=== PATIENT | male | born 1980 | race Asian ===

== ENCOUNTER 2020-09-29 23:13 | Emergency (ER) | payer BC, SELFPAY ==
[~2020-09-29] VITALS: Ht 170.2 cm; Wt 83.9 kg
[2020-09-29 23:16] VITALS: Ht 170.2 cm; Wt 83.9 kg
[2020-09-29 23:56] VITALS: BP 128/87
== END 2020-09-29 23:56 | disposition home or self-care (01) ==
LOC: ED 23:13
DX: Z03.818 Encounter for observation for suspected exposure to other biological agents ruled out (principal); Z98.890 Other specified postprocedural states
CPT/HCPCS: U0003